=== PATIENT | female | born 1970 | race Caucasian/White ===

== ENCOUNTER 2020-11-15 14:43 | Emergency (ER) | payer OTHER ==
[~2020-11-15] VITALS: Ht 167.6 cm; Wt 68.0 kg
[~2020-11-15 14:43] MED LIST: PERCOCET 5-3251 EACH PO
[2020-11-15 15:30] VITALS: BP 127/63
== END 2020-11-15 15:32 | disposition home or self-care (01) ==
LOC: M.ERS 14:43
DX: M54.41 Lumbago with sciatica, right side (principal); G89.29 Other chronic pain; Z88.6 Allergy status to analgesic agent; Z88.0 Allergy status to penicillin; Z88.2 Allergy status to sulfonamides